=== PATIENT | female | born 1935 | race Two or more races ===

== ENCOUNTER 2022-06-25 12:46 | Emergency (ER) | payer OTHER ==
[~2022-06-25] VITALS: Ht 144.8 cm; Wt 56.7 kg
[2022-06-25] MEDS ORDERED: COZAAR100 MG PO (12:58)
[2022-06-25] MEDS ORDERED: BUSPIRONE HCL7.5 MG PO (12:58)
[2022-06-25] MEDS ORDERED: HYDROCHLOROTHIA25 MG PO (13:00)
== END 2022-06-25 17:41 | disposition home or self-care (01) ==
LOC: ER 12:46
DX: E86.0 Dehydration (principal); K80.20 Calculus of gallbladder without cholecystitis without obstruction; N20.0 Calculus of kidney